=== PATIENT | female | born 1990 | race African-American/Black ===

== ENCOUNTER 2017-11-26 12:38 | Outpatient (CLI) | payer OTHER ==
[2017-11-26 13:01] VITALS: BP 114/78
--- NOTE | 2017-11-26 16:46 | Ultrasound Report ---
LIMITED OB ULTRASOUND: 11/26/2017 CLINICAL INDICATION: Cramping, pelvic pressure. TECHNIQUE: Real-time scanning was performed with medical customer service representative static images obtained. LAST MENSTRUAL PERIOD: 05/12/2017 Clinical Age: 28 weeks 2 days US Age: -- EFW Hadlock: -- EFW% Hadlock: -- Heart Rate: 123 bpm EDC: 02/16/2018 [place] EDC: -- BPD Hadlock: -- HC Hadlock: -- AC Hadlock: -- FL Hadlock: -- Presentation: cephalic Placental Location: posterior Cervical Length: TA 4.1 cm Amniotic Fluid: JOHN 19.9 cm; MVP 6.0 cm FINDINGS There is a single viable intrauterine gestation, in cephalic presentation. heart rate is 123 BPM. The placenta is posterior, without evidence of previa. Amniotic fluid volume is normal, with an JOHN of 19.9. The cervix measures 4.1 cm, and is closed. IMPRESSION: NORMAL CERVIX AND JOHN. POSTERIOR PLACENTA, WITHOUT EVIDENCE OF PREVIA. SINGLE VIABLE INTRAUTERINE GESTATION. TD: 11/26/2017 14:53 [facility]
== END 2017-11-26 15:51 | disposition home or self-care (01) ==
LOC: WFO 12:38 → FBP 12:44 → WFO 15:51
PROVIDERS: ATTEND Obstetrics & Gynecology
DX: O47.03 False labor before 37 completed weeks of gestation, third trimester (principal); Z3A.28 28 weeks gestation of pregnancy
CPT/HCPCS: 76815; 99214